=== PATIENT | female | born 1995 | race Caucasian/White ===

== ENCOUNTER 2016-11-11 13:08 | Inpatient (IN) | payer OTHER ==
[~2016-11-11] VITALS: Ht 160 cm; Wt 52.8 kg
[~2016-11-11 13:08] MED LIST: AMOXICILLIN875 M1 PO; CELEXA20 M1 PO; CHLORASEPTIC177 M1 MM; FLUCONAZOLE150 MG PO; HYDROCODON-ACE1 EA16 PO; HYDROCODON-ACE1 EACH PO; IBUPROFEN800 M1 PO; INDERAL10 MG PO; JUNEL FE PO; KEFLEX500 M1 PO; LEVAQUIN750 M1 PO; LEXAPRO20 M1 PO; MIGRAINE MED; NAPROSYN500 M1 PO; NEXPLANON68 M1 SQ; NORCO 5-325 TA1 EACH PO; PERCOCET 5-3251 EACH PO; PYRIDIUM200 MG PO; SEPTRA DS TABLE1 TAB PO; TOPAMAX50 M1 PO; TYLENOL #31 TA1 PO; ZOFRAN ODT4 MG PO; ZOFRAN4 M2 PO; [UNRECOGNIZED DRUG - OTHER]; [UNRECOGNIZED DRUG - OTHER] PO
[2016-11-11 13:51] LABS: BASO % 0.4 % (0-2); BASO ABSOLUTE COUNT 0.1 tho/cmm (0.0-0.2); EOS % 3.3 % (0-7); EOSINOPHIL ABSOLUTE COUNT 0.5 tho/cmm (0.0-0.7); HCT-HEMATOCRIT 40.3 % (34.0-49.0); HGB-HEMOGLOBIN 13.7 gm/dl (12.0-15.5); IMMATURE GRANULOCYTES ABSOLUTE 0.05 tho/cmm (0-0.03); IMMATURE GRANULOCYTES PERCENT 0.3 % (0-0.3); LYMPH ABSOLUTE COUNT 2.3 tho/cmm (0.8-4.5); MCH (MEAN CORPUSCULAR HGB) 31.4 pg (28.0-32.0); MCV (MEAN CELL VOLUME) 92.2 fl (82.0-96.0); MEAN PLATELET VOLUME 10.7 cmc (9.4-12.4); MONO % 8.8 % (0-12); MONOCYTE ABSOLUTE COUNT 1.4 tho/cmm (0.0-1.2); NEUTROPHIL ABSOLUTE COUNT 11.9 tho/cmm (1.6-8.0); NEUTROPHIL-AUTOMATED 11.9 tho/cmm (1.6-8.0); NEUTROPHILS % 73.2 % (40-80); PLATELET COUNT 206 tho/cmm (150-450); RED BLOOD COUNT 4.37 mil/cmm (4.00-5.20); RED CELL DISTRIBUTION WIDTH 12.9 % (12.4-16.4); WHITE BLOOD COUNT 16.3 tho/cmm (4.0-10.0)
[2016-11-11 14:07] LABS: ALB/GLOB RATIO 0.8 (0.8-2.0); ALBUMIN 3.3 g/dl (3.5-5.0); ALKALINE PHOSPHATASE 69 U/L (33-138); ALT/SGPT 24 U/L (12-78); BILIRUBIN,TOTAL 1.4 mg/dl (0-1.5); BLOOD UREA NITROGEN 6 mg/dl (6-24); CALCIUM 8.8 mg/dl (8.5-10.5); CARBON DIOXIDE-VENOUS 25 mmol/L (22-32); CHLORIDE 105 mmol/l (96-110); CREATININE 0.65 mg/dl (0.50-1.10); GLUCOSE 82 mg/dL (70-110); LIPASE 101 U/L (73-393); SODIUM 137 mmol/L (135-145); eGFR VALUE FOR BLACK >90 mL/Min
[2016-11-11 14:11] LABS: ANION GAP 11 mmol/L (0-20); AST/SGOT 16 U/L (10-40)
[2016-11-11 14:58] LABS: URINE APPEARANCE HAZY; URINE BILIRUBIN NEGATIVE (NEG); URINE BLOOD SMALL (NEG); URINE COLOR DARK YELLOW; URINE GLUCOSE (UA) NEGATIVE (NEG); URINE KETONE NEGATIVE (NEG); URINE LEUKOCYTE ESTERASE POSITIVE (NEG); URINE NITRITE NEGATIVE (NEG); URINE PROTEIN NEGATIVE (NEG); URINE SPECIFIC GRAVITY 1.015 (1.003-1.030)
[2016-11-11 15:03] LABS: URINE BACTERIA 2+; URINE MUCUS 2+
[2016-11-11 15:04] LABS: URINE RBC 0 /[HPF] (0-5); URINE WBC 0-3 /[HPF] (0-5)
[2016-11-12 05:09] LABS: BASO % 0.4 % (0-2); BASO ABSOLUTE COUNT 0.1 tho/cmm (0.0-0.2); EOS % 3.5 % (0-7); EOSINOPHIL ABSOLUTE COUNT 0.5 tho/cmm (0.0-0.7); HCT-HEMATOCRIT 34.7 % (34.0-49.0); HGB-HEMOGLOBIN 11.8 gm/dl (12.0-15.5); IMMATURE GRANULOCYTES ABSOLUTE 0.04 tho/cmm (0-0.03); IMMATURE GRANULOCYTES PERCENT 0.3 % (0-0.3); LYMPH % 11.9 % (20-45); LYMPH ABSOLUTE COUNT 1.7 tho/cmm (0.8-4.5); MCH (MEAN CORPUSCULAR HGB) 31.2 pg (28.0-32.0); MCV (MEAN CELL VOLUME) 91.8 fl (82.0-96.0); MONO % 8.9 % (0-12); MONOCYTE ABSOLUTE COUNT 1.2 tho/cmm (0.0-1.2); NEUTROPHIL ABSOLUTE COUNT 10.5 tho/cmm (1.6-8.0); NEUTROPHIL-AUTOMATED 10.5 tho/cmm (1.6-8.0); PLATELET COUNT 187 tho/cmm (150-450); RED BLOOD COUNT 3.78 mil/cmm (4.00-5.20); RED CELL DISTRIBUTION WIDTH 12.7 % (12.4-16.4)
[2016-11-12 05:10] LABS: ALB/GLOB RATIO 0.7 (0.8-2.0); ALBUMIN 2.6 g/dl (3.5-5.0); ALKALINE PHOSPHATASE 59 U/L (33-138); ALT/SGPT 19 U/L (12-78); ANION GAP 10 mmol/L (0-20); AST/SGOT 12 U/L (10-40); BILIRUBIN,TOTAL 1.8 mg/dl (0-1.5); BLOOD UREA NITROGEN 5 mg/dl (6-24); CALCIUM 8.5 mg/dl (8.5-10.5); CARBON DIOXIDE-VENOUS 25 mmol/L (22-32); CHLORIDE 104 mmol/l (96-110); CREATININE 0.44 mg/dl (0.50-1.10); GLUCOSE 77 mg/dL (70-110); POTASSIUM 3.8 mmol/L (3.7-5.1); SODIUM 135 mmol/L (135-145); eGFR VALUE FOR BLACK >90 mL/Min
[2016-11-13 05:51] LABS: BASO % 0.5 % (0-2); BASO ABSOLUTE COUNT 0.1 tho/cmm (0.0-0.2); EOS % 6.7 % (0-7); EOSINOPHIL ABSOLUTE COUNT 0.9 tho/cmm (0.0-0.7); HGB-HEMOGLOBIN 10.6 gm/dl (12.0-15.5); IMMATURE GRANULOCYTES ABSOLUTE 0.03 tho/cmm (0-0.03); IMMATURE GRANULOCYTES PERCENT 0.2 % (0-0.3); LYMPH % 14.8 % (20-45); LYMPH ABSOLUTE COUNT 2.1 tho/cmm (0.8-4.5); MCH (MEAN CORPUSCULAR HGB) 30.8 pg (28.0-32.0); MCHC MEAN CORPUSCULAR HGB CONC 34.2 % (32.0-36.0); MCV (MEAN CELL VOLUME) 90.1 fl (82.0-96.0); MEAN PLATELET VOLUME 9.7 cmc (9.4-12.4); MONO % 8.6 % (0-12); MONOCYTE ABSOLUTE COUNT 1.2 tho/cmm (0.0-1.2); NEUTROPHIL ABSOLUTE COUNT 9.6 tho/cmm (1.6-8.0); NEUTROPHIL-AUTOMATED 9.6 tho/cmm (1.6-8.0); NEUTROPHILS % 69.2 % (40-80); PLATELET COUNT 222 tho/cmm (150-450); RED BLOOD COUNT 3.44 mil/cmm (4.00-5.20); RED CELL DISTRIBUTION WIDTH 12.8 % (12.4-16.4); WHITE BLOOD COUNT 13.9 tho/cmm (4.0-10.0)
[2016-11-13 05:53] LABS: ALB/GLOB RATIO 0.6 (0.8-2.0); ALBUMIN 2.3 g/dl (3.5-5.0); ALKALINE PHOSPHATASE 55 U/L (33-138); ALT/SGPT 19 U/L (12-78); ANION GAP 9 mmol/L (0-20); AST/SGOT 12 U/L (10-40); BLOOD UREA NITROGEN 4 mg/dl (6-24); CALCIUM 8.4 mg/dl (8.5-10.5); CARBON DIOXIDE-VENOUS 25 mmol/L (22-32); CHLORIDE 110 mmol/l (96-110); CREATININE 0.43 mg/dl (0.50-1.10); GLUCOSE 92 mg/dL (70-110); POTASSIUM 3.6 mmol/L (3.7-5.1); SODIUM 140 mmol/L (135-145); eGFR VALUE FOR BLACK >90 mL/Min
[2016-11-13 06:07] LABS: BILIRUBIN,TOTAL 0.7 mg/dl (0-1.5)
[2016-11-14 05:01] LABS: BASO % 0.9 % (0-2); BASO ABSOLUTE COUNT 0.1 tho/cmm (0.0-0.2); EOS % 12.8 % (0-7); EOSINOPHIL ABSOLUTE COUNT 1.4 tho/cmm (0.0-0.7); HCT-HEMATOCRIT 32.5 % (34.0-49.0); HGB-HEMOGLOBIN 10.9 gm/dl (12.0-15.5); IMMATURE GRANULOCYTES ABSOLUTE 0.04 tho/cmm (0-0.03); IMMATURE GRANULOCYTES PERCENT 0.4 % (0-0.3); LYMPH % 19.7 % (20-45); LYMPH ABSOLUTE COUNT 2.1 tho/cmm (0.8-4.5); MCH (MEAN CORPUSCULAR HGB) 30.6 pg (28.0-32.0); MCHC MEAN CORPUSCULAR HGB CONC 33.5 % (32.0-36.0); MCV (MEAN CELL VOLUME) 91.3 fl (82.0-96.0); MONO % 8.8 % (0-12); NEUTROPHIL ABSOLUTE COUNT 6.2 tho/cmm (1.6-8.0); NEUTROPHIL-AUTOMATED 6.2 tho/cmm (1.6-8.0); NEUTROPHILS % 57.4 % (40-80); PLATELET COUNT 260 tho/cmm (150-450); RED BLOOD COUNT 3.56 mil/cmm (4.00-5.20); RED CELL DISTRIBUTION WIDTH 12.9 % (12.4-16.4); WHITE BLOOD COUNT 10.8 tho/cmm (4.0-10.0)
[2016-11-14 05:16] LABS: ALB/GLOB RATIO 0.6 (0.8-2.0); ALBUMIN 2.3 g/dl (3.5-5.0); ALKALINE PHOSPHATASE 59 U/L (33-138); ALT/SGPT 18 U/L (12-78); AMYLASE 40 U/L (20-90); ANION GAP 11 mmol/L (0-20); AST/SGOT 7 U/L (10-40); BLOOD UREA NITROGEN 3 mg/dl (6-24); C-REACTIVE PROTEIN 7.3 mg/dl (0-0.9); CALCIUM 8.2 mg/dl (8.5-10.5); CARBON DIOXIDE-VENOUS 24 mmol/L (22-32); CHLORIDE 108 mmol/l (96-110); CREATININE 0.44 mg/dl (0.50-1.10); GLUCOSE 84 mg/dL (70-110); LIPASE 102 U/L (73-393); POTASSIUM 3.7 mmol/L (3.7-5.1); SODIUM 139 mmol/L (135-145); eGFR VALUE FOR BLACK >90 mL/Min
[2016-11-14] MEDS ORDERED: NORCO 5-325 TA1 EACH PO (13:49)
== END 2016-11-14 14:06 | DRG 395 ==
LOC: EDMED 13:08 → EMR2 20:41 → CAR1 20:41
PROVIDERS: Emergency Medicine; Specialist; ADMIT Surgery
PROC: 0F788DZ Dilation of Cystic Duct with Intraluminal Device, Via Natural or Artificial Opening Endoscopic (ICD-10-PCS; principal; 2016-11-12)
DX: K91.89 Other postprocedural complications and disorders of digestive system (principal); D64.9 Anemia, unspecified; D72.829 Elevated white blood cell count, unspecified
CPT/HCPCS: A9537; C1769; C2625; J1170; J1956; J2405; J7030; Q9967